=== PATIENT | male | born 1950 | race Caucasian/White ===

== ENCOUNTER 2017-09-04 09:51 | Outpatient (CLI) | payer MEDICARE, OTHER ==
--- NOTE | 2017-09-04 15:29 | DEXA Report ---
DEXA SCAN: 09/04/2017 CLINICAL INDICATION: Osteoporosis, family history. TECHNIQUE: Dual energy x-ray absorptiometry (DXA) was performed on a [employer] system. Regions measured are the AP spine, femoral neck, and, if needed, forearm. COMPARISON: None. In accordance with the International Society for Clinical Densitometry (ISCD) guidelines, data from previous exams may be reanalyzed using current recommendations and techniques. This is done to allow a more accurate basis for comparison with the current study. FINDINGS: The data for the lumbar spine is as follows: REGION BMD (g/cm/cm) T-SCORE Z-SCORE L1 0.979 -1.5 -1.3 L2 1.126 -0.9 -0.8 L3 0.959 -2.3 -2.2 L4 1.057 -1.5 -1.4 TOTAL 1.031 -1.6 -1.4 NOTE: All evaluable vertebrae are used for classification. The data for the hip is as follows: REGION BMD (g/cm/cm) T-SCORE Z-SCORE Neck 0.768 -2.3 -1.4 TOTAL 0.775 -2.3 -1.9 NOTE: The femoral neck or total proximal femur, whichever is lowest, is used for classification. IMPRESSION: THE WHO CLASSIFICATION BASED ON THE INTERNATIONAL REFERENCE STANDARD IS OSTEOPENIA. THE FRACTURE RISK IS INCREASED. RECOMMENDATION: Patients with diagnosis of osteoporosis or osteopenia should have regular bone mineral density assessment. For those eligible for Medicare, routine testing is allowed once every 2 years. Testing frequency can be increased for patients who have rapidly progressing disease or for those who are receiving medical therapy to restore bone mass. COMMENT: World Health Organization (WHO) definitions for osteoporosis and osteopenia: NORMAL BMD: T-score at 1.0 or higher, fracture risk is low. OSTEOPENIA BMD: T-score between 1.0 and -2.5, fracture risk is increased. OSTEOPOROSIS BMD: T-score at 2.5 or lower, fracture risk high. National Osteoporosis Foundation recommends: 1. Obtain adequate dietary calcium (at least 1200 mg per day) and vitamin D (400 -800 international units per day). 2. Participate, as appropriate, in regular weightbearing and muscle- strengthening exercise. 3. Avoid tobacco use and reduce alcohol and caffeine intake. 4. For more detailed information see the website at www.NOF.org. MTDD
== END 2017-09-04 09:52 | disposition home or self-care (01) ==
LOC: DI 09:51
PROVIDERS: ATTEND Internal Medicine
DX: M85.89 Other specified disorders of bone density and structure, multiple sites (principal)
CPT/HCPCS: 77080

== ENCOUNTER 2021-05-05 08:21 | Outpatient (CLI) | payer MEDICARE, OTHER ==
--- NOTE | 2021-05-05 16:21 | DEXA Report ---
PROCEDURE: Dexa Spine and/or Hip INDICATIONS: OSTEOPENIA TECHNIQUE: Dual energy x-ray absorptiometry (DXA) was performed on a [employer] System. Regions measur ed are the AP Spine, femoral neck, and if needed forearm. COMPARISON: DEXA 09/04/2017 FINDINGS: Lumbar Spine: Bone Mineral Density 1.132 g/cm/cm,T score -0.7, compared to -1.6 Left Hip: Bone Mineral Density 0.757 g/cm/cm,T score -2.4, compared to -2.3 Left Femoral Neck: Bone Mineral Density 0.770 g/cm/cm, T score -2.3, compared to -2.3 (T score greater or equal to -1.0: NORMAL) (T score from -1.1 to -2.4: OSTEOPENIA) (T score less than or equal to -2.5 to: OSTEOPOROSIS) Impression: Persistent severe osteopenia within the left hip and femoral neck with improved bone mine ral density in the lumbar spine. Patients with diagnosis of osteoporosis or osteopenia should have regular bone mineral density assess ment. For those eligible for Medicare, routine testing is allowed once every 2 years. Testing frequ ency can be increased for patients who have rapidly progressing disease or for those who are receivin g medical therapy to restore bone mass. Reviewed by: Vanessa Guo MD on 05/05/2021 4:19 PM PST Approved by: Vanessa Guo MD on 05/05/2021 4:19 PM PST Station ID: [id number]
== END 2021-05-05 08:22 | disposition home or self-care (01) ==
LOC: DI 08:21
PROVIDERS: ATTEND Internal Medicine
DX: M85.89 Other specified disorders of bone density and structure, multiple sites (principal)